=== PATIENT | female | born 1970 | race Hispanic/Latino ===

== ENCOUNTER 2020-09-28 18:46 | Emergency (ER) | payer OTHER, SELFPAY ==
--- NOTE | ~2020-09-28 | CT_ITS ---
EXAMINATION: CT abdomen pelvis wo con DATE: 09/28/2020 19:15 INDICATION: Left upper quadrant abdominal pain. Left flank pain. TECHNIQUE: Computed tomography (CT) of the abdomen and pelvis was performed without intravenous contr ast. Automated exposure control and iterative reconstruction technique were employed. The dose-length product was 195.90 mGy-cm. COMPARISON: None. FINDINGS: The visualized portions of the lung bases are clear without pneumonia or pleural effusion. The heart size is normal. No pericardial effusion. There is diffuse hepatic steatosis. There is a gal lstone in the gallbladder, which is normal in size. There is a small sliding hiatal hernia. The splee n, pancreas, adrenal glands, and right kidney are normal. There is a 4 mm stone in left kidney. There is mild left hydronephrosis and hydroureter. There is a 5 mm stone in distal left ureter. There are no dilated loops of bowel. The appendix is normal. There are no pathologically enlarged lymph nodes. There is no free intraperitoneal fluid. There is severe lower lumbar spondylosis. IMPRESSION: 1. 5 mm stone in distal left ureter with mild left hydronephrosis and hydroureter. 2. 4 mm nonobstructing left kidney stone. Reviewed, dictated and finalized at location A. IMPRESSION: 1. 5 mm stone in distal left ureter with mild left hydronephrosis and hydrouret er. 2. 4 mm nonobstructing left kidney stone.
--- NOTE | ~2020-09-28 | XR_ITS ---
EXAMINATION: XR abdomen/kub 1V DATE: 09/28/2020 19:27 INDICATION: Left flank pain. TECHNIQUE: A supine view of the abdomen was obtained. COMPARISON: CT abdomen and pelvis 09/28/2020 FINDINGS: There are no dilated loops of bowel. There is a 5 mm stone in distal left ureter. There is a 4 mm stone in left kidney. IMPRESSION: 1. 5 mm stone in distal left ureter. 2. 4 mm stone in left kidney. Reviewed, dictated and finalized at location A.
[2020-09-28 18:51] VITALS: BP 131/67; PULSE 58; RESP 16; TEMP 36.6; O2SAT 99
[2020-09-28 19:04] LABS: Basophils Percent Auto 0.2 % (0.2-1.2); Eosinophils Absolute Auto 0.1 K/mm3 (0-0.3); Hematocrit 39.2 % (37.0-47.0); Immature Granulocyte Absolute 0.03 K/mm3 (0.00-0.031); Immature Granulocyte Percent A 0.4 % (0-0.5); Lymphocytes Absolute Auto 3.48 K/mm3 (0.9-3.2); Lymphocytes Percent Auto 42.3 % (18.3-44.2); Mean Corpuscular HGB Conc 33.2 g/dl (32-36); Mean Corpuscular Hemoglobin 29.7 pg (26-34); Mean Corpuscular Volume 89.5 fl (80-100); Mean Platelet Volume 11.2 fl (7.4-10.4); Monocytes Absolute Auto 0.6 K/mm3 (0.1-0.6); Monocytes Percent Auto 6.7 % (2.6-8.5); Neutrophils Absolute Auto 4.1 K/mm3 (1.3-6.7); Neutrophils Percent Auto 49.4 % (45.5-73.1); Platelet Count Result 280 k/mm3 (150-375); Red Blood Count 4.38 M/mm3 (4.2-5.4); Red Cell Distribution Width 13.2 % (11.5-14.5); White Blood Count 8.2 K/mm3 (4.5-10.0)
--- NOTE | 2020-09-28 19:09 | ED.GENADULT ---
HPI - General Adult General Chief complaint: Abdominal Pain Stated complaint: back pain radiates to lower abd Time Seen by Provider: 09/28/20 19:01 Source: patient, family and RN notes reviewed Mode of arrival: ambulatory Limitations: language barrier (Patient's family is present and translating effectively) History of Present Illness HPI narrative: Patient is a 50-year-old female who presents with acute onset of left flank pain today left-sided denies similar occurrence in the past associated nausea patient denies any other complaints presents in no distress has not taken anything for her symptoms patient does not appear uncomfortable on arrival denies any urinary or bowel changes. Patient had one episode of emesis attributed to pain Related Data Allergies Allergy/AdvReac Type Severity Reaction Status Date / Time No Known Allergies Allergy Verified 09/28/20 19:50 Review of Systems Review of Systems: All systems reviewed & are unremarkable except as noted in HPI and below PMFSH Social History Social History (Updated 09/28/20 @ 19:10 by Clyde Yeh PA-C) Smoking status: Never smoker Exam Narrative: Exam Narrative: GENERAL: Well-appearing, well-nourished, and in no acute distress. HEAD: Normocephalic, atraumatic. EYES: PERRLA and EOMI. ENT: Nares clear, no rhinorrhea or epistaxis. Mucous membranes moist. CHEST: Clear to auscultation. No respiratory distress. No wheezes rales or rhonchi HEART: Regular rate and rhythm. No murmur heard. Normal peripheral pulses. ABDOMEN: Soft, nontender, nondistended EXTREMITIES: Normal range of motion. No edema. SKIN: Warm, dry, no rash. NEURO: No focal deficits. Alert and oriented x3. PSYCH: Normal mood and affect. Course Course Emergency Course: Patient evaluated in the emergency department for urolithiasis medicated found to have 5 mm distal stone will follow up with urology on outpatient basis provided with reasons to return Consultations Consultation #1: Discussed case with Dr. Clark urology who will follow patient outpatient Date: 09/28/20 Time: 20:04 Vital Signs Vital signs: Vital Signs Temperature 97.9 F 09/28/20 18:51 Pulse Rate 58 L 09/28/20 18:51 Respiratory Rate 16 09/28/20 18:51 Blood Pressure 131/67 09/28/20 18:51 Pulse Oximetry 99 09/28/20 18:51 Temperature 97.9 F 09/28/20 18:51 Pulse Rate 58 L 09/28/20 18:51 Respiratory Rate 16 09/28/20 18:51 Blood Pressure 131/67 09/28/20 18:51 Pulse Oximetry 99 09/28/20 18:51 Medical Decision Making MDM Narrative Medical decision making narrative: Patient presented with acute onset flank pain found to have kidney stone will follow with urology aware of recommendations and discussion with urology Vital Signs Vital Signs: Vital Signs Temperature 97.9 F 09/28/20 18:51 Pulse Rate 58 L 09/28/20 18:51 Respiratory Rate 16 09/28/20 18:51 Blood Pressure 131/67 09/28/20 18:51 Pulse Oximetry 99 09/28/20 18:51 Temperature 97.9 F 09/28/20 18:51 Pulse Rate 58 L 09/28/20 18:51 Respiratory Rate 16 09/28/20 18:51 Blood Pressure 131/67 09/28/20 18:51 Pulse Oximetry 99 09/28/20 18:51 Lab Data Result diagrams: 09/28/20 18:59 09/28/20 18:59 Labs: Lab Results 09/28/20 09/28/20 Range/Units 18:59 18:59 WBC 8.2 (4.5-10.0) K/mm3 RBC 4.38 (4.2-5.4) M/mm3 Hgb 13.0 (12.0-15.0) g/dL Hct 39.2 (37.0-47.0) % MCV 89.5 (80-100) fl MCH 29.7 (26-34) pg MCHC 33.2 (32-36) g/dl RDW 13.2 (11.5-14.5) % Plt Count 280 (150-375) k/mm3 MPV 11.2 H (7.4-10.4) fl Immature Gran % (Auto) 0.4 (0-0.5) % Neut % (Auto) 49.4 (45.5-73.1) % Lymph % (Auto) 42.3 (18.3-44.2) % [place] % (Auto) 6.7 (2.6-8.5) % Eos % (Auto) 1.0 (0-4.4) % Baso % (Auto) 0.2 (0.2-1.2) % Lymph # (Auto) 3.48 H (0.9-3.2) K/mm3 [place] # (Auto) 0.6 (0.1-0.6) K/mm3 Eos # (Auto) 0.1 (0-0.3) K/mm3 Baso # (Auto)
[2020-09-28 19:17] LABS: Alanine Aminotransferase 54 U/L (4-35); Albumin Level 4.5 g/dL (3.5-5.1); Alkaline Phosphatase 67 U/L (38-126); Anion Gap 9 mmol/L (8-16); Aspartate Amino Transferase 44 U/L (14-36); Bilirubin,Total 0.2 mg/dL (0.2-1.3); Blood Urea Nitrogen 13 mg/dL (7-17); Calcium 9.4 mg/dL (8.4-10.2); Carbon Dioxide 25 mmol/L (22-30); Chloride 106 mmol/L (98-107); Estimated CRCL calculation 60 ml/min; Estimated Glomerular Filt Rate > 60; Glucose 112 mg/dL (65-105); Lipase 309 U/L (23-300); Potassium 3.4 mmol/L (3.4-5.0); Sodium 140 mmol/L (137-145)
--- NOTE | 2020-09-28 19:18 | PC.NURSE ---
Pt. to ct
[2020-09-28] MEDS: ONDANSETRON INJ 4 MG/2 ML VIAL IV PUSH ×2 (19:30→21:04)
[2020-09-28] MEDS: SODIUM CHLORIDE 0.9% IV 1,000 ML 999 ML IV CONT ×2 (19:30→21:03)
[2020-09-28 19:37] LABS: Add Urine Microscopic? YES; Appearance Urine Cloudy (Clear); Bacteria Urine Trace /hpf; Bilirubin Urine Negative (Negative); Blood Urine 3+ (Negative); Color Urine Yellow (Yellow); Glucose Urine UA Negative (Negative); Ketones Urine Negative (Negative); Leukocyte Esterase Ur Negative LEU/UL (Negative); Mucus Urine Heavy /lpf; Nitrate Urine Negative (Negative); Protein Urine 1+ mg/dL (Negative); RBC Urine 51-75 /hpf (0-2); Specific Grav Ur 1.024 (1.001-1.035); Squamous Epithelial Cell Urine Moderate /hpf (Few); Urobilinogen Urine Negative mg/dL (<2.0)
[2020-09-28 20:08] VITALS: BP 141/79; PULSE 66; RESP 14; O2SAT 99
[2020-09-28] MEDS: KETOROLAC 30 MG/ML VIAL (*BKC) IV PUSH (20:19)
[2020-09-28] MEDS: MORPHINE SULFATE (*CRX) 4 MG/ML INJ IV PUSH (21:04)
[2020-09-28 21:34] VITALS: BP 133/78; PULSE 63; RESP 14; O2SAT 97
[2020-09-28 22:04] VITALS: BP 99/67; PULSE 60; RESP 17; O2SAT 100
== END 2020-09-28 22:04 | disposition home or self-care (01) ==
PROVIDERS: Family Medicine; Emergency Provider Emergency Medicine
DX: N20.9 Urinary calculus, unspecified (principal)
CPT/HCPCS: 36415; 74018; 74176; 80053; 81001; 83690; 85025; 87086; 96361; 96374; 96375; 96376; 99284; J0131; J1885; J2270; J2405; J7030